=== PATIENT | female | born 1980 | race Caucasian/White ===

== ENCOUNTER 2021-10-22 12:02 | Emergency (ER) | payer SELFPAY ==
[~2021-10-22] VITALS: Ht 157 cm; Wt 56.6 kg
--- NOTE | 2021-10-22 12:48 | ED General ---
General Chief Complaint: Altered Mental Status Stated Complaint: AMS/MANIC EPISODE History of Present Illness Date Seen by Provider: Oct 22, 2021 Time Seen by Provider: 12:38 Initial Comments 41 year old female presents for multiple complaints. She immediately asked to have her daughter on speaker phone to assist with her care. Daughter reports 2 week history of AMS, limited food intake, and difficulty with concentration. She has no thoughts to harm herself or others. She has lost her job recently and has become paranoid. Approximately 2 years ago, while in [place], she had a disagreement with the father of her children and took a bottle of medications for insomnia. She was taken to the hospital and put under a 96 hour hold. She denies any other admissions for mental health. 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 She has history of anxiety and depression, only mental health medication is Hyroxyzine. Most of her medications are from [place], so she is not taking regularly. She goes to [facility] for healthcare, but denies seeing mental health. She is here to seek voluntary assessment, she continually states "I don't want to be locked up." Her daughter reports issues between her mother and the landlord, this required law enforcement. They told her daughter there are concerns for her to provide self-care and recommended she be assessed. Patient reports smoking 1 pack a day, since age 15. She has used marijuana, approximately 10 days ago with a friend and she likes to do this, as it helps her to sleep and she only sleeps 3 hours most nights. She has no acute complaints at this time, denies vision changes, headache, vertigo, SOA, chest pain, N/V/D. Daughter is [place] [phone] Patient able to converse and answers all questions appropriately, she has no delusional thoughts and denies hallucinations. She changes subject frequently and wants to expand on most topics. Timing/Duration: Getting Worse Associated Systoms: Denies Symptoms (TIERRA HUFFMAN) Allergies and Home Medications Patient Home Medication List Home Medication List Reviewed: Yes (TIERRA HUFFMAN) Review of Systems Review of Systems Constitutional: no symptoms reported, see HPI Psychiatric/Neurological: See HPI, Anxiety, Depressed, Emotional Problems (TIERRA HUFFMAN) All Other Systems Reviewed Negative Unless Noted: Yes (TIERRA HUFFMAN) Past Iandpnu-Yxgdcn-Dsawlr Hx Patient Social History Tobacco Use?: Yes Tobacco type used: Cigarettes Smoking Status: Heavy Tobacco Smoker Substance use?: Yes Substance type: Marijuana Substance frequency: Couple times a week Alcohol Use?: No (TIERRA HUFFMAN) Family Medical History Reviewed and Corrections made (TIERRA HUFFMAN) Physical Exam Vital Signs Vital Signs - First Documented 10/22/21 12:38 Temp 36.5 Pulse 98 Resp 18 B/P (MAP) 114/81 (92) Pulse Ox 98 (ARNALDO WARE MD) Vital Signs Capillary Refill : (TIERRA HUFFMAN) Height, Weight, BMI Height: '" Weight: lbs. oz. kg; BMI Method: General Appearance: No Apparent Distress, WD/WN Eyes: Right Eye Normal Inspection, Right Eye PERRL, Right Eye EOMI; Left Eye Other (glass eye) HEENT: TMs Normal, Normal ENT Inspection, Pharynx Normal, Moist Mucous Membranes Neck: Full Range of Motion, Normal Inspection, Non Tender, Supple Respiratory: Chest Non Tender, Lungs Clear, Normal Breath Sounds Cardiovascular: Regular Rate, Rhythm, No Murmur, Normal Peripheral Pulses Gastrointestinal: Normal Bowel Sounds, Non Tender, Soft Back: Normal Inspection, No CVA Tenderness, No Vertebral Tenderness Extremity: Normal Capillary Refill, Normal Inspection, Normal Range of Motion, Non Tender, No Calf Tenderness, No Pedal Edema Neurologic/Psychiatric: Alert, Oriented x3, No Motor/Sensory Deficits, Normal Mood/Affect, career manager II-XII Norm as Tested Skin: Normal Color, Warm/Dry Comments Good appearance, clean, no hallucinations. Makes good eye contact. Not aggressive, answers all questions and forthcoming with past history. Father had alzheimers, she is concerned for this risk (TIERRA HUFFMAN) Progress/Results/Core Measures Suspected Sepsis SIRS Temperature: Pulse: Respiratory Rate: Laboratory Tests 10/22/21 13:04: White Blood Count 8.6 Blood Pressure / Mean: Laboratory Tests 10/22/21 13:04: Creatinine 0.77, Platelet Count 245, Total Bilirubin 0.6 (TIERRA HUFFMAN) Results/Orders Lab Results Laboratory Tests Test 10/22/21 13:04 10/22/21 13:29 Range/Units White Blood Count 8.6 4.3-11.0 10^3/uL Red Blood Count 4.31 3.80-5.11 10^6/uL Hemoglobin 14.3 11.5-16.0 g/dL Hematocrit 40 35-52 % Mean Corpuscular Volume 94 80-99 fL Mean Corpuscular Hemoglobin 33 25-34 pg Mean Corpuscular Hemoglobin Concent 36 32-36 g/dL Red Cell Distribution Width 12.8 10.0-14.5 % Platelet Count 245 130-400 10^3/uL Mean Platelet Volume 9.7 9.0-12.2 fL Immature Granulocyte % (Auto) 0 % Neutrophils (%) (Auto) 70 42-75 % Lymphocytes (%) (Auto) 23 12-44 % Monocytes (%) (Auto) 5 0-12 % Eosinophils (%) (Auto) 1 0-10 % Basophils (%) (Auto) 1 0-10 % Neutrophils # (Auto) 6.1 1.8-7.8 10^3/uL Lymphocytes # (Auto) 2.0 1.0-4.0 10^3/uL Monocytes # (Auto) 0.5 0.0-1.0 10^3/uL Eosinophils # (Auto) 0.1 0.0-0.3 10^3/uL Basophils # (Auto) 0.1 0.0-0.1 10^3/uL Immature Granulocyte # (Auto) 0.0 0.0-0.1 10^3/uL Neutrophils % (Manual) 67 % Lymphocytes % (Manual) 27 % Monocytes % (Manual) 5 % Eosinophils % (Manual) % Basophils % (Manual) 1 % Clumped Platelets Blood Morphology Comment NORMAL Sodium Level 139 135-145 MMOL/L Potassium Level 4.0 3.6-5.0 MMOL/L Chloride Level 107 98-107 MMOL/L Carbon Dioxide Level 20 L 21-32 MMOL/L Anion Gap 12 5-14 MMOL/L Blood Urea Nitrogen 10 7-18 MG/DL Creatinine 0.77 0.60-1.30 MG/DL Estimat Glomerular Filtration Rate 99 BUN/Creatinine Ratio 13 Glucose Level 99 70-105 MG/DL Calcium Level 9.1 8.5-10.1 MG/DL Corrected Calcium 9.0 8.5-10.1 MG/DL Total Bilirubin 0.6 0.1-1.0 MG/DL Aspartate Amino Transf (AST/SGOT) 12 5-34 U/L Alanine Aminotransferase (ALT/SGPT) 11 0-55 U/L Alkaline Phosphatase 47 40-136 U/L Total Protein 6.6 6.4-8.2 GM/DL Albumin 4.1 3.2-4.5 GM/DL TSH [place] Testing 1.07 0.35-4.94 UIU/ML Serum Test, Qualitative NEGATIVE NEGATIVE Salicylates Level < 5.0 L 5.0-20.0 MG/DL Acetaminophen Level < 10 L 10-30 UG/ML Serum Alcohol < 10 <10 MG/DL Urine Color ORANGE Urine Clarity CLEAR Urine pH 6.5 5-9 Urine Specific [place] 1.020 1.016-1.022 Urine Protein NEGATIVE NEGATIVE Urine Glucose (UA) NEGATIVE NEGATIVE Urine Ketones NEGATIVE NEGATIVE Urine Nitrite NEGATIVE NEGATIVE Urine Bilirubin NEGATIVE NEGATIVE Urine Urobilinogen 1.0 < = 1.0 MG/DL Urine Leukocyte Esterase NEGATIVE NEGATIVE Urine RBC (Auto) NEGATIVE NEGATIVE Urine RBC NONE /HPF Urine WBC NONE /HPF Urine Squamous Epithelial Cells 0-2 /HPF Urine Crystals NONE /LPF Urine Bacteria NEGATIVE /HPF Urine Casts NONE /LPF Urine Mucus SMALL H /LPF Urine Culture Indicated NO Urine Opiates Screen NEGATIVE NEGATIVE Urine Oxycodone Screen NEGATIVE NEGATIVE Urine Methadone Screen NEGATIVE NEGATIVE Urine Propoxyphene Screen NEGATIVE NEGATIVE Urine Barbiturates Screen NEGATIVE NEGATIVE Ur Tricyclic Antidepressants Screen NEGATIVE NEGATIVE Urine Phencyclidine Screen NEGATIVE NEGATIVE Urine Amphetamines Screen NEGATIVE NEGATIVE Urine Methamphetamines Screen NEGATIVE NEGATIVE Urine Benzodiazepines Screen NEGATIVE NEGATIVE Urine Cocaine Screen NEGATIVE NEGATIVE Urine Cannabinoids Screen POSITIVE H NEGATIVE (ARNALDO WARE MD) My Orders Orders - ARNALDO WARE MD Acetaminophen (10/22/21 12:12) Alcohol (10/22/21 12:12) Cbc With Automated Diff (10/22/21 12:12) Comprehensive Metabolic Panel (10/22/21 12:12) Drug Screen Stat (Urine) (10/22/21 12:12) Hcg,Qualitative Serum (10/22/21 12:12) Salicylate (10/22/21 12:12) Thyroid Analyzer (10/22/21 12:12) Ua Culture If Indicated (10/22/21 12:12) Manual Differential (10/22/21 13:04) (ARNALDO WARE MD) Vital Signs/I&O 10/22/21 10/22/21 12:38 14:43 Temp 36.5 Pulse 98 89 Resp 18 20 B/P (MAP) 114/81 (92) 126/79 Pulse Ox 98 98 (ARNALDO WARE MD) Vital Signs/I&O Capillary Refill : (TIERRA HUFFMAN) Progress Note : Time: 12:38 Progress Note Patient seen and evaluated, will obtain labs and CT of head. 1330 patient has been cooperative, she does drink water and Pedialyte no complaints at this time. She has been more focused with conversations. no medications have been indicated or requested. 1400 spoke to patient and daughter by phone reviewed all labs and CT results. No acute findings. Discussed the patient's desire for future care, she is not wanting voluntary mental health placement. She would like to trial outpatient mental health services at [facility] to see or through [facility]. She continues to display no signs of self-harm, hallucinations or other concerning findings. Daughter was agreeable with plan to follow-up at [facility]. She will continue to monitor her mother. Discharge instructions and return precautions reviewed. (TIERRA HUFFMAN) Diagnostic Imaging Diagonstic Imaging: CT Plain Films/CT/US/NM/MRI: head Comments NAME: MARIEL COVINGTON MED REC#: [id number] PT STATUS: REG ER : 1980 PHYSICIAN: TIERRA HUFFMAN ADMIT DATE: 10/22/21/ER Signed Date of Exam:10/22/21 CT HEAD WO EXAMINATION: CT brain from 10/22/2021. TECHNIQUE: Multiple contiguous axial images were obtained through the brain without the use of intravenous contrast. Auto Exposure Controls were utilized during the CT exam to meet ALARA standards for radiation dose reduction. INDICATION: Acute mental status change, increasing anxiety with confusion for several weeks. FINDINGS: There is postoperative change within the left lobe. Intracranially, there is no acute hemorrhage or infarct. No mass, mass effect, or midline shift. No hydrocephalus. The calvarium appears intact. Paranasal sinuses demonstrate air-fluid levels bilaterally within the maxillary sinuses. Mastoid air cells are clear. IMPRESSION: 1. No acute intracranial process. 2. Sinus disease as above with acute sinusitis suspected. Correlate with symptoms. Dictated by: Dictated on workstation # [id number] Dict: 10/22/21 1313 Trans: 10/22/21 1332 [id number] [id number] Interpreted by: PEPITO DIAZ MD Electronically signed by: PEPITO DIAZ MD 10/22/212 Reviewed: Reviewed by Me (TIERRA HUFFMAN) Departure Impression Primary Impression: Altered mental status Qualified Codes: R41.82 - Altered mental status, unspecified Additional Impression: Bipolar 1 disorder, mixed Disposition: 01 HOME, SELF-CARE Condition: Stable Departure-Patient Inst. Decision time for Depature: 13:55 (TIERRA HUFFMAN) Referrals: [facility] (PCP/Family) Primary Care Physician Patient Instructions: Altered Mental Status (DC), Bipolar Disorder (DC) Add. Discharge Instructions: Schedule follow up with Dr. Wilson. Call [facility] for appt with Mental Health. Or consider [facility]. Consider voluntary in patient treatment, if not able to be managed outpatient. Call [phone] if symptoms worsen and you need immediate services. Call 911 if thoughts to harm self or others. You can take 2 Hydroxyzine prior to sleep, otherwise 1 tablet at a time for anxiety. Consider legal paths to obtain power of amalgamator, so if symptoms worsen your daughter could make choices for you. Consider staying with your son/daughter, if your current living arrangement is causing increased stress. Return to the Emergency Dept for new, urgent healthcare problems. All discharge instructions reviewed with patient and/or family. Voiced understanding. ATTENDING PHYSICIAN NOTE: I was physically present as attending physician in the emergency department during the care of this patient, but I was not directly involved in the decision making or delivery of care for this patient. (ARNALDO WARE MD) Copy Copies To 1: TRAVIS WILSON AMY ARNP Oct 22, 2021 12:48 ARNALDO WARE MD Oct 22, 2021 16:41
[2021-10-22 13:11] LABS: BASOPHILS # (AUTO) 0.1 10^3/uL (0.0-0.1); BASOPHILS % (AUTO) 1 % (0-10); EOSINOPHILS # (AUTO) 0.1 10^3/uL (0.0-0.3); EOSINOPHILS % (AUTO) 1 % (0-10); HEMATOCRIT 40 % (35-52); HEMOGLOBIN 14.3 g/dL (11.5-16.0); LYMPHOCYTES % (AUTO) 23 % (12-44); MEAN CORPUSCULAR HEMOGLOBIN 33 pg (25-34); MEAN CORPUSCULAR HGB CONC 36 g/dL (32-36); MEAN CORPUSCULAR VOLUME 94 fL (80-99); MEAN PLATELET VOLUME 9.7 fL (9.0-12.2); MONOCYTES # (AUTO) 0.5 10^3/uL (0.0-1.0); MONOCYTES % (AUTO) 5 % (0-12); NEUTROPHILS # (AUTO) 6.1 10^3/uL (1.8-7.8); NEUTROPHILS % (AUTO) 70 % (42-75); PLATELET COUNT 245 10^3/uL (130-400); WHITE BLOOD COUNT 8.6 10^3/uL (4.3-11.0)
[2021-10-22 13:21] LABS: ALBUMIN 4.1 GM/DL (3.2-4.5); CHLORIDE 107 MMOL/L (98-107); SODIUM 139 MMOL/L (135-145)
[2021-10-22 13:23] LABS: CALCIUM 9.1 MG/DL (8.5-10.1)
[2021-10-22 13:24] LABS: GLUCOSE 99 MG/DL (70-105); TOTAL PROTEIN 6.6 GM/DL (6.4-8.2)
[2021-10-22 13:25] LABS: CARBON DIOXIDE 20 MMOL/L (21-32)
--- NOTE | 2021-10-22 13:25 | Diagnostic Imaging Report ---
EXAMINATION: CT brain from 10/22/2021. TECHNIQUE: Multiple contiguous axial images were obtained through the brain without the use of intravenous contrast. Auto Exposure Controls were utilized during the CT exam to meet ALARA standards for radiation dose reduction. INDICATION: Acute mental status change, increasing anxiety with confusion for several weeks. FINDINGS: There is postoperative change within the left lobe. Intracranially, there is no acute hemorrhage or infarct. No mass, mass effect, or midline shift. No hydrocephalus. The calvarium appears intact. Paranasal sinuses demonstrate air-fluid levels bilaterally within the maxillary sinuses. Mastoid air cells are clear. IMPRESSION: 1. No acute intracranial process. 2. Sinus disease as above with acute sinusitis suspected. Correlate with symptoms. Dictated by: Dictated on workstation # [id number]
[2021-10-22 13:26] LABS: BILIRUBIN,TOTAL 0.6 MG/DL (0.1-1.0)
[2021-10-22 13:28] LABS: ALKALINE PHOSPHATASE 47 U/L (40-136); CREATININE SERUM 0.77 MG/DL (0.60-1.30); GFR ESTIMATED 99
[2021-10-22 13:29] LABS: BUN/CREATININE RATIO 13
[2021-10-22 13:30] LABS: ACETAMINOPHEN < 10 UG/ML (10-30); SALICYLATE < 5.0 MG/DL (5.0-20.0)
[2021-10-22 13:31] LABS: ALANINE AMINOTRANSFERASE 11 U/L (0-55)
[2021-10-22 13:36] LABS: BILIRUBIN,URINE NEGATIVE (NEGATIVE); CLARITY,URINE CLEAR; COLOR,URINE ORANGE; GLUCOSE, URINE (UA) NEGATIVE (NEGATIVE); KETONES,URINE NEGATIVE (NEGATIVE); LEUKOCYTE ESTERASE ,URINE NEGATIVE (NEGATIVE); NITRITE,URINE NEGATIVE (NEGATIVE); PH,URINE 6.5 (5-9); PROTEIN,URINE NEGATIVE (NEGATIVE)
[2021-10-22 13:39] LABS: LYMPHOCYTES % (MANUAL) 27 %; MONOCYTES % (MANUAL) 5 %; NEUTROPHILS % (MANUAL) 67 %
[2021-10-22 13:40] LABS: BASOPHILS % (MANUAL) 1 %; RBC MORPH NORMAL
[2021-10-22 13:42] LABS: BACTERIA,URINE NEGATIVE /HPF; SQUAMOUS EPITHELIAL CELL,UR 0-2 /HPF
[2021-10-22 13:47] LABS: AMPHETAMINE SCREEN, URINE NEGATIVE (NEGATIVE); BARBITURATE SCREEN URINE NEGATIVE (NEGATIVE); BENZODIAZEPINES SCREEN URINE NEGATIVE (NEGATIVE); CANNABINOID SCREEN, URINE POSITIVE (NEGATIVE); COCAINE SCREEN URINE NEGATIVE (NEGATIVE); METHADONE STAT NEGATIVE (NEGATIVE); METHAMPHETAMINE SCREEN URINE S NEGATIVE (NEGATIVE); OPIATE SCREEN URINE NEGATIVE (NEGATIVE); OXYCODONE STAT NEGATIVE (NEGATIVE); PROPOXYPHENE STAT NEGATIVE (NEGATIVE); TRICYCLIC ANTIDEPRESSANTS SCRE NEGATIVE (NEGATIVE)
[2021-10-22 13:51] LABS: TSH (THYROID ANALYZER) 1.07 UIU/ML (0.35-4.94)
[2021-10-22 14:43] VITALS: BP 126/79
== END 2021-10-22 14:43 | disposition home or self-care (01) ==
LOC: ER 12:06
DX: R41.82 Altered mental status, unspecified (principal); F31.9 Bipolar disorder, unspecified; F17.210 Nicotine dependence, cigarettes, uncomplicated
CPT/HCPCS: 70450; 80053; 80306; 81000; 84443; 84703; 85007; 85027; 99283; G0480 ×3; 36415; 80320; 80329